=== PATIENT | male | born 1955 | race Caucasian/White ===

== ENCOUNTER → 2022-03-22 | Outpatient (CLI) | payer MEDICARE ==
[~2022-03-22] MED LIST: CLINDAMYCIN HC150 MG PO; NYSTATIN15 GM TP
== END ==
LOC: EMI 13:09
DX: S83.512A Sprain of anterior cruciate ligament of left knee, initial encounter (principal); S83.522A Sprain of posterior cruciate ligament of left knee, initial encounter; M71.22 Synovial cyst of popliteal space [Baker], left knee; M25.462 Effusion, left knee
CPT/HCPCS: 73721

== ENCOUNTER 2022-05-11 21:10 | Emergency (ER) | payer MEDICARE ==
[2022-05-11] MEDS ORDERED: HYDROCODON-ACE1 EAC4 PO (23:14)
== END 2022-05-11 23:45 | disposition home or self-care (01) ==
LOC: ER1 21:10
DX: S53.005A Unspecified dislocation of left radial head, initial encounter (principal); I10 Essential (primary) hypertension; E11.9 Type 2 diabetes mellitus without complications; R00.0 Tachycardia, unspecified; W17.89XA Other fall from one level to another, initial encounter; Y92.009 Unspecified place in unspecified non-institutional (private) residence as the place of occurrence of the external cause
CPT/HCPCS: 24600; 73080; 99283; J2704

== ENCOUNTER 2022-05-14 10:29 | Emergency (ER) | payer MEDICARE ==
[~2022-05-14 10:29] MED LIST changes: +HYDROCODON-ACE1 EAC4 PO
[2022-05-14] MEDS ORDERED: ROXICODONE TAB 55 MG PO (15:24)
== END 2022-05-14 15:40 | disposition home or self-care (01) ==
LOC: ER1 10:29
DX: S53.125A Posterior dislocation of left ulnohumeral joint, initial encounter (principal); S70.02XA Contusion of left hip, initial encounter; W10.9XXA Fall (on) (from) unspecified stairs and steps, initial encounter
CPT/HCPCS: 73070; 73502; 73700; 99284